=== PATIENT | male | born 1975 | race Two or more races ===

== ENCOUNTER 2024-06-12 20:55 | Emergency (ER) | payer OTHER ==
[~2024-06-12] VITALS: Ht 162.6 cm; Wt 63.5 kg
[2024-06-12] MEDS ORDERED: TETANUS & DIPHTHERIA TOX,ADULT 0.5 ML VIAL IM ONE (21:45)
[2024-06-12] MEDS ORDERED: LIDOCAINE HCL 1% 10ML VIAL ONE (21:55)
[2024-06-12] MEDS ORDERED: TETANUS DIPHTHERIA TOX. ADSOR 5 ML VIAL IM ONE (21:55)
[2024-06-12] MEDS ORDERED: LIDOCAINE HCL 1%/EPINEPHRINE 20ML VIAL IJ ONE (22:07)
[2024-06-12] MEDS ORDERED: CEFTRIAXONE SODIUM 1,000 MG VIAL ONE (22:21)
[2024-06-12] MEDS ORDERED: AMOX-CLAV 875-1 EACH PO (22:30)
== END 2024-06-12 22:35 | disposition home or self-care (01) ==
LOC: ER 20:57
DX: S61.412A Laceration without foreign body of left hand, initial encounter (principal); W25.XXXA Contact with sharp glass, initial encounter; Y93.89 Activity, other specified; Y92.89 Other specified places as the place of occurrence of the external cause; Y99.9 Unspecified external cause status

== ENCOUNTER → 2025-08-02 08:57 | Outpatient (CLI) | payer OTHER ==
[~2025-08-02 08:57] MED LIST: AMOX-CLAV 875-1 EACH PO
== END | disposition home or self-care (01) ==
LOC: SONOGRAMA 08:57
DX: R10.11 Right upper quadrant pain (principal)